=== PATIENT | female | born 1995 | race Caucasian/White ===

== ENCOUNTER 2018-07-07 16:20 | Emergency (ER) | payer SELFPAY ==
[~2018-07-07] VITALS: Ht 165.1 cm; Wt 64.6 kg
[2018-07-07 16:26] VITALS: BP 128/83; PULSE 65; RESP 20; Ht 165.1 cm; Wt 64.6 kg
== END 2018-07-07 17:08 | disposition left against medical advice (07) ==
LOC: FTE 16:20
DX: Z53.21 Procedure and treatment not carried out due to patient leaving prior to being seen by health care provider (principal)
CPT/HCPCS: 93005